=== PATIENT | female | born 1980 | race Caucasian/White ===

== ENCOUNTER 2023-10-14 11:36 | Emergency (ER) | payer OTHER, SELFPAY ==
[2023-10-14 11:43] VITALS: BP 125/79
[2023-10-14 12:43] LABS: % Basophils 0.3 % (0-2); % Eosinophils 1.5 % (0-6); % Immature Granulocytes 0.3 % (0-0.5); % Lymphocytes 20.9 % (20.5-51.1); Absolute Eosinophils 0.1 10^3/uL (0-0.7); Absolute Lymphocytes 1.6 10^3/uL (1.2-3.4); Absolute Monocytes 0.5 10^3/uL (0.1-0.6); Absolute Neutrophils 5.3 10^3/uL (1.4-6.5); Hemoglobin 13.6 g/dL (12.0-16.0); Mean Corp Hgb Conc. 34.9 g/dL (33.0-37.0); Mean Corpuscular Hgb 32.7 pg (27.0-31.0); Mean Corpuscular Volume 93.8 fL (81.0-99.0); Mean Platelet Volume 9.7 fL (7.4-10.4); Nucleated Red Blood Cells % 0 %; Platelet Count 375 10^3/uL (130-400); Red Blood Cell Count 4.16 10^6/uL (4.20-5.40); Red Cell Dist. Width 12.7 % (11.5-14.5); White Blood Cell Count 7.5 10^3/uL (4.8-10.8)
--- NOTE | 2023-10-14 12:48 | ED.GENMED ---
History of Present Illness
General
Chief Complaint: Abdominal Pain
Time Seen by Provider: 10/14/23 12:16
History of Present Illness
History of Present Illness:
Patient presents to the emergency department with diffuse abdominal pain. Symptoms began 3 days ago. She notes pain is worse in the epigastric region region but radiates to bilateral lower quadrants. There is no fevers or chills. No nausea or
vomiting. Notes anorexia. Denies constipation or diarrhea. Denies urinary symptoms. History of alcohol use around 3 times a week. Denies any recent binge drinking
Phy Exam
Physical Exam
Physical Exam:
GENERAL APPEARANCE: NAD, well developed/ well nourished, in mild distress from discomfort
EYES lids/conjunctiva normal
EARS/NOSE/THROAT Mucous membranes moist, uvula midline without oral pharyngeal erythema, exudate or swelling
HEAD/NECK normocephalic atraumatic, neck is supple.
RESPIRATORY respiratory effort normal, speaks in full sentences, no accessory muscle use. Lungs clear to auscultation without rhonchi, wheezes, rales
CARDIAC Regular rate and rhythm, no edema.
ABDOMINAL soft and nondistended. She has diffuse tenderness worst in the left lower quadrant. Kendrick's negative there is no hernia or palpable pulsatile masses
MUSCLES/EXTREMITIES No abnormal range of motion, no swelling.
SKIN Warm, pink and dry. No rashes
NEUROLOGICAL Speech is clear and appropriate. Normal level of consciousness. 5/5 strength in all extremities.
PSYCH Normal mood and affect. Judgement/competence is appropriate
Course
Orders/Labs/Results
Orders:
Orders
10/14/23 11:46
Test Result ONCE
10/14/23 12:21
Complete Blood Count/With Diff Urgent
Comprehensive Metabolic Panel Urgent
HCG, Serum Qualitative Screen Urgent
Comment: Notify provider if positive test present
Lipase Urgent
10/14/23 12:46
0.9% Sodium Chloride 1000 ml [Nss] 1,000 ml IV BOLUS
Morphine Sulfate 4 mg IV NOW STA
Ondansetron Injectable [Zofran] 4 mg IV NOW STA
10/14/23 12:47
CT Abd/pelvis W Iv Cont Urgent
Comment:
Reason For Exam: bilateral lower abdominal pain
Abnormal Lab Results
10/14/23
12:21
RBC 4.16 L 10^6/uL
(4.20-5.40)
MCH 32.7 H pg
(27.0-31.0)
Glucose 152 H mg/dl
(70-99)
10/14/23 12:21
10/14/23 12:21
Vital Signs
Initial and Last Documented VS:
Initial Vital Signs
Temp Pulse Resp BP Pulse Ox
97.8 F 99 18 125/79 100
10/14/23 11:43 10/14/23 11:43 10/14/23 11:43 10/14/23 11:43 10/14/23 11:43
Last Documented Vital Signs
Temp Pulse Resp BP Pulse Ox
97.8 F 76 18 105/71 100
10/14/23 11:43 10/14/23 14:00 10/14/23 11:43 10/14/23 14:00 10/14/23 14:15
*Critical Care Note
Total Time (30-74mins, 75-104mins- exclusive of procedures): Not Applicable
ED Attending Note
ED Attending Note
ED Attending Note:
Patient presents to the emergency department with diffuse abdominal pain. She is nontoxic-appearing but is diffusely tender. Differential diagnosis includes cholecystitis, pancreatitis, diverticulitis or appendicitis versus other. Plan for labs
and CT abdomen pelvis. Will treat symptomatically and reassess
Patient's labs are reassuring. CT scan notable for enteritis which is nonspecific. Patient has no history of recurrent abdominal pain or bloody stools, doubt inflammatory bowel disease. Will cover for infectious causes. Discussed with patient
about disposition. Patient strongly prefers to go home at this time though I offered her observation for continued pain management and clinical monitoring. Return precautions given
-
Portions of this chart may have been created with voice recognition software.� Occasional wrong word or��sound alike� substitutions may have occurred due to the inherent limitations of voice recognition software.
Discharge Plan
Departure
Patient Disposition: Home (Routine Discharge)
Date of Disposition: 10/14/23
Time of Disposition: 15:17
Patient with high blood pressure during this ER visit?: No
Discharge Problem:
Enteritis
Instructions: Abdominal Pain
Prescriptions:
New
amoxicillin-pot clavulanate 875-125 mg tablet
1 tab PO BID Qty: 14 0RF
oxycodone 5 mg capsule
5 mg PO Q8H PRN (Reason: severe pain) Qty: 9 0RF
Referrals:
Elissa Sanon MD [Active] - Next open appointment (follow up for enteritis discharged from ER )
UNKNOWN - PT DOES,NOT KNOW [Family Provider] -
Activity Restrictions/Additional Instructions:
Your CT scan showed nonspecific enteritis. This could possibly be coming from an infection with either a virus or bacteria. It could also be inflammatory in nature or autoimmune. Please take antibiotic as prescribed. Follow-up as soon as you can
with a ore puncher. Return to the emergency department with worsening symptoms
Interventions
Interventions:
*Risk Screen - Suicide Last Done: 10/14/23 11:43
*General Assessment Last Done: 10/14/23 11:43
*Neglect/Abuse Screening Last Done: 10/14/23 11:43
ED- Fall Risk Assessment Last Done: 10/14/23 12:51
*Nursing Disposition Last Done: 10/14/23 15:38
TP-Cqfvqy-Effnehgmcm Assessment Last Done: 10/14/23 12:51
Discharge Date and Time
Discharge Date/Time: 10/14/23 15:41
Print Language: TELUGU
[2023-10-14 12:54] LABS: HCG, Serum Qualitative Screen Negative
[2023-10-14] MEDS: NSS 1000 IV (12:58)
[2023-10-14] MEDS: ZOFRAN 4 MG IV (12:59)
[2023-10-14] MEDS: MORPHINE SULFATE 4 MG IV (12:59)
[2023-10-14 13:00] VITALS: BP 116/76
[2023-10-14 13:00] LABS: ALT (SGPT) 12 U/L (0-35); AST (SGOT) 18 U/L (14-36); Albumin 4.2 g/dl (3.5-5.0); Alkaline Phosphatase 72 U/L (38-126); Blood Urea Nitrogen 9 mg/dl (7-17); Carbon Dioxide 25 mmol/L (22-30); Chloride 103 mmol/L (98-107); Estimated Creatinine Clearance > 125 ml/min; Glucose 152 mg/dl (70-99); Lipase 28 U/L (23-300); Potassium 3.6 mmol/L (3.5-5.1); Sodium 136 mmol/L (135-145); Total Bilirubin 0.6 mg/dl (0.2-1.3); Total Protein 6.6 g/dl (6.3-8.2); eGFR > 60.00
[2023-10-14 14:00] VITALS: BP 105/71
== END 2023-10-14 15:41 | disposition home or self-care (01) ==
LOC: EMR 11:36
PROVIDERS: Student in an Organized Health Care Education/Training Program; EMERGENCY PHYSICIAN Emergency Medicine
DX: K52.9 Noninfective gastroenteritis and colitis, unspecified (principal)
CPT/HCPCS: 99285; 96375; 96361; 96374; 74177; 80053; 83690; 84703; 85025; Q9967

== ENCOUNTER → 2024-04-13 13:21 | Outpatient (REF) | payer OTHER, SELFPAY | LOC: RAD 13:21 | PROVIDERS: ATTENDING PHYSICIAN Student in an Organized Health Care Education/Training Program; FAMILY PHYSICIAN Family Medicine | DX: N39.9 Disorder of urinary system, unspecified (principal) | CPT/HCPCS: 76830; 76856 ==

== ENCOUNTER 2024-10-20 19:11 | Emergency (ER) | payer OTHER, SELFPAY ==
[2024-10-20 19:16] VITALS: BP 125/77
[2024-10-20 19:38] LABS: Hematocrit 27.9 % (37.0-47.0); Hemoglobin 9.1 g/dL (12.0-16.0); Mean Corp Hgb Conc. 32.6 g/dL (33.0-37.0); Mean Corpuscular Volume 83.3 fL (81.0-99.0); Nucleated Red Blood Cells % 0 %; Platelet Count 281 10^3/uL (130-400); Red Cell Dist. Width 19.6 % (11.5-14.5)
[2024-10-20 20:01] LABS: HCG, Serum Qualitative Screen Negative
[2024-10-20 20:04] LABS: ALT (SGPT) 13 U/L (0-35); AST (SGOT) 17 U/L (14-36); Albumin 4.0 g/dl (3.5-5.0); Alkaline Phosphatase 102 U/L (38-126); Blood Urea Nitrogen 6 mg/dl (7-17); Calcium 8.7 mg/dl (8.4-10.2); Carbon Dioxide 23 mmol/L (22-30); Chloride 103 mmol/L (98-107); Glucose 113 mg/dl (70-99); Lipase 32 U/L (23-300); Potassium 3.5 mmol/L (3.5-5.1); Sodium 135 mmol/L (135-145); Total Protein 6.6 g/dl (6.3-8.2); eGFR > 60.00
[2024-10-20 23:44] VITALS: BP 129/62
[2024-10-21] MEDS: TORADOL 15 MG IV (00:36)
--- NOTE | 2024-10-21 01:06 | ED.GENMED ---
History of Present Illness
General
Chief Complaint: Abdominal Pain
Time Seen by Provider: 10/21/24 00:00
History of Present Illness
History of Present Illness:
44-year-old female with history of fibroids presenting to the emergency department for lower abdominal pain. Patient reports ongoing issue for several months. She has been following with gynecology, however did recently lose her insurance due to a
new job. She is supposed to follow-up with gynecology at the end of October. Reports prior ultrasound imaging, displaying fibroids. In the past 2 weeks, reports increasing pain, right greater than left. She is at the tail end of her menstrual
cycle. Denies any abdominal surgeries in the past. Denies fever. Denies chest pain or difficulty breathing. She is taking ibuprofen and Tylenol at home for pain with minimal relief. Last bowel movement was this morning. Denies additional acute
medical complaint
Phy Exam
Physical Exam
Physical Exam:
General: Well-appearing, no clinical signs of dehydration, nontoxic and in no acute distress
HEENT: protecting airway
Neck: appears supple
CV: Normal heart rate, regular rhythm
Resp: No accessory muscle use, no increased work of breathing, lungs clear to auscultation bilaterally
Abd: Mild to moderate abdominal distention, generalized tenderness to the lower abdomen, right lower quadrant greater than left lower quadrant. No rebound or guarding
Extremities: No deformities, no swelling
Neuro: alert, no focal neurologic deficit
: deferred
Rectal: deferred
Psych: Normal affect
Skin: Intact
Course
Orders/Labs/Results
Orders:
Orders
10/20/24 19:25
Test Result ONCE
10/20/24 19:28
Complete Blood Count/With Diff Urgent
Comprehensive Metabolic Panel Urgent
HCG, Serum Qualitative Screen Urgent
Comment: Notify provider if positive test present
Lipase Urgent
10/21/24 00:00
US Pelvis Only (non-obstetric) Urgent
Reason For Exam: right pelvic pain, known fibroids
10/21/24 00:07
Ketorolac [Toradol] 15 mg IV NOW STA
10/21/24 02:00
CT Abd/pelvis W Iv Cont Urgent
Comment:
Reason For Exam: lower abd pain, known hx fibroids
Abnormal Lab Results
10/20/24
19:28
WBC 16.8 H 10^3/uL
(4.8-10.8)
RBC 3.35 L 10^6/uL
(4.20-5.40)
Hgb 9.1 L g/dL
(12.0-16.0)
Hct 27.9 L %
(37.0-47.0)
MCHC 32.6 L g/dL
(33.0-37.0)
RDW 19.6 H %
(11.5-14.5)
Abs Immat Gran (auto) 0.1 H 10^3/uL
(0-0.05)
Absolute Neuts (auto) 13.7 H 10^3/uL
(1.4-6.5)
Absolute Monos (auto) 1.1 H 10^3/uL
(0.1-0.6)
Immature Gran % 0.6 H %
(0-0.5)
Neutrophils % 81.6 H %
(42.2-75.2)
Lymphocytes % 10.8 L %
(20.5-51.1)
BUN 6 L mg/dl
(7-17)
Creatinine 0.4 L mg/dL
(0.6-1.0)
Glucose 113 H mg/dl
(70-99)
10/20/24 19:28
10/20/24 19:28
Vital Signs
Initial and Last Documented VS:
Initial Vital Signs
Temp Pulse Resp BP Pulse Ox
98.8 F 110 16 125/77 98
10/20/24 19:16 10/20/24 19:16 10/20/24 19:16 10/20/24 19:16 10/20/24 19:16
Last Documented Vital Signs
Temp Pulse Resp BP Pulse Ox
98.8 F 98 16 129/62 98
10/20/24 19:16 10/20/24 23:44 10/20/24 23:44 10/20/24 23:44 10/21/24 01:06
MDM/Problems Addressed
MDM/Problems Addressed:
44-year-old female with history of fibroids presenting for lower abdominal pain. Vital signs are normal.
On exam patient is in no acute distress, slightly uncomfortable secondary to pain with generalized tenderness to the lower abdomen. Abdomen is moderately distended with pain most prominent to the right lower quadrant. Given duration of symptoms
and gynecologic issues, lower suspicion for appendicitis. Suspect ovarian pathology versus fibroid issues. No present hemodynamic instability, afebrile and nontoxic. Plan for laboratory analysis and pelvic ultrasound imaging. Toradol
administered for pain.
01:00 - Patient does have a leukocytosis. Pending ultrasound results
02:00 -ultrasound shows large uterus secondary to fibroids, unable to comment on ovaries. Limited visualization. There is reasonable obtain CT abdomen and pelvis
03:40 -CT is consistent with enlarged uterus, with fibroids. Suspect etiology of patient's pain, does note that it is slightly enlarged from prior imaging. Otherwise no concerning pathology. Patient remained stable on reassessment. Feel stable
for discharge with outpatient gynecologic follow-up. Patient has an appointment in the next 2 weeks. Return precautions discussed and patient verbalized understanding.
*Pulse Oximetry
SaO2: 98
Oxygen Mode of Delivery: Room air
Patient hypoxic: no
*Critical Care Note
Total Time (30-74mins, 75-104mins- exclusive of procedures): Not Applicable
ED Attending Note
-
Portions of this chart may have been created with voice recognition software.� Occasional wrong word or��sound alike� substitutions may have occurred due to the inherent limitations of voice recognition software.
Discharge Plan
Departure
Patient with high blood pressure during this ER visit?: No
Condition: Good
Discharge Problem:
Abdominal pain, Uterine fibroid
Instructions: Uterine Fibroids (DC)
Prescriptions:
No Action
amoxicillin-pot clavulanate 875-125 mg tablet
1 tab PO BID Qty: 14 0RF
oxycodone 5 mg capsule
5 mg PO Q8H PRN (Reason: severe pain) Qty: 9 0RF
Referrals:
Mitch Mena MD [Family Provider, Family Practice]
Soledad Genao DO [Active, Gynecology]
Activity Restrictions/Additional Instructions:
You were seen in the emergency department for lower abdominal pain
You were found to have significant amount of uterine fibroids causing an enlarged uterus which we suspect to be etiology of your pain and your symptoms. We recommend follow-up quality as scheduled.
Please follow-up closely with your primary care physician.
Return to the emergency department for any worsening of your symptoms, or any development of chest pain, difficulty breathing, abdominal pain with persistent vomiting and inability to tolerate food or liquid by mouth (concern for dehydration),
weakness, headache or confusion, fever greater than 100.4, or any additional symptoms that are concerning to you.
Thank you for choosing [facility].
Interventions
Interventions:
*Risk Screen - Suicide Last Done: 10/20/24 19:15
*General Assessment Last Done: 10/20/24 19:16
*Neglect/Abuse Screening Last Done: 10/20/24 19:16
*ED- Fall Risk Assessment Last Done: 10/20/24 19:16
*ED COVID-19 Vaccine History Last Done: 10/20/24 19:16
DX-Zgciow-Qjzykblzxx Assessment Last Done: 10/20/24 23:44
Discharge Date and Time
Print Language: KAZAKH
== END 2024-10-21 03:49 | disposition home or self-care (01) ==
LOC: EMR 19:11
PROVIDERS: EMERGENCY PHYSICIAN Student in an Organized Health Care Education/Training Program; FAMILY PHYSICIAN Family Medicine
DX: R10.30 Lower abdominal pain, unspecified (principal); D25.9 Leiomyoma of uterus, unspecified
CPT/HCPCS: 99284; 96374; 74177; 76856; 80053; 83690; 84703; 85025; Q9967